=== PATIENT | male | born 1965 | race Caucasian/White ===

== ENCOUNTER 2016-06-24 19:37 | Emergency (ER) | payer BC ==
[2016-06-24 20:20] LABS: BASOPHILS 0.1 % (0.0-2.0); EOSINOPHILS 0.5 % (0-7); HEMATOCRIT 39.8 % (42.0-54.0); HEMOGLOBIN 13.2 g/dL (13.5-17.5); IMMATURE GRANULOCYTES 0.3 % (0-5); LYMPHOCYTES 6.5 % (15-50); MCH 28.9 pg (26.0-34.0); MCHC 33.2 g/dL (31.0-37.0); MCV 87.1 fL (80.0-100.0); MEAN PLATELET VOLUME 11.2 fL (7.4-10.4); MONOCYTES 0.3 % (2-11); NEUTROPHILS 92.3 % (40-80); PLATELET COUNT 150 10x3/uL (130-400); RBC 4.57 10x6/uL (4.20-6.10); RDW 12.4 % (11.5-14.5); WBC 7.8 10x3/uL (4.8-10.8)
[2016-06-24 20:38] LABS: ALBUMIN 3.7 g/dL (3.4-5.0); ALKALINE PHOSPHATASE 84 U/L (46-116); ALT (SGPT) 28 U/L (10-68); BILIRUBIN - TOTAL 1.02 mg/dL (0.2-1.3); CALC OSMOLALITY 276 mosm/kg (275-300); CALCIUM 9.1 mg/dL (8.5-10.1); CARBON DIOXIDE 27.2 mmol/L (21.0-32.0); CHLORIDE - SERUM 99 mmol/L (98-107); CREATININE - SERUM 1.1 mg/dL (0.6-1.3); GLUCOSE 156 mg/dL (74-106); POTASSIUM - SERUM 3.8 mmol/L (3.5-5.1); PROTEIN - SERUM 7.3 g/dL (6.4-8.2); SODIUM 136 mmol/L (136-145); UREA NITROGEN 17 mg/dL (7-18); eGFR NON AFRICAN AMERICAN 75 mL/min (90-120)
[2016-06-29 03:10] LABS: LYME WB - IGG P18 AB Absent (()); LYME WB - IGG P23 AB Absent (()); LYME WB - IGG P28 AB Absent (()); LYME WB - IGG P30 AB Absent (()); LYME WB - IGG P39 AB Absent (()); LYME WB - IGG P41 AB Present (()); LYME WB - IGG P45 AB Absent (()); LYME WB - IGG P58 AB Present (()); LYME WB - IGG P66 AB Absent (()); LYME WB - IGG P93 AB Absent (()); LYME WB - IGG WB INTERP Negative (()); LYME WB - IGM P23 AB Absent (()); LYME WB - IGM P39 AB Present (()); LYME WB - IGM P41 AB Absent (()); LYME WB - IGM WB INTERP Negative (())
[2016-07-02 15:20] LABS: EHRLICHIA CHAFF IGG Negative (Neg:<1:64); EHRLICHIA CHAFF IGM Negative (Neg:<1:20); HGE IGG TITER Negative (Neg:<1:64); HGE IGM TITER Negative (Neg:<1:20)
[2016-07-03 12:16] LABS: F. TULARENSIS - IGG Negative (()); F. TULARENSIS - IGM Negative (()); RMSF IGM 0.75 index (0.00-0.89)
== END 2016-06-24 23:10 | disposition home or self-care (01) ==
LOC: D.ER 19:37
PROVIDERS: Surgery
DX: M17.11 Unilateral primary osteoarthritis, right knee (principal); S83.91XA Sprain of unspecified site of right knee, initial encounter; W19.XXXA Unspecified fall, initial encounter; Y93.89 Activity, other specified; Y92.89 Other specified places as the place of occurrence of the external cause; A93.8 Other specified arthropod-borne viral fevers; F17.200 Nicotine dependence, unspecified, uncomplicated

== ENCOUNTER 2017-07-29 08:54 | Emergency (ER) | payer MEDICAID ==
[2017-07-29 09:47] LABS: BASOPHILS 0.4 % (0-2); EOSINOPHILS 1.1 % (0-7); HEMATOCRIT 38.9 % (42.0-54.0); HEMOGLOBIN 12.7 g/dL (13.5-17.5); IMMATURE GRANULOCYTES 0.2 % (0-5); LYMPHOCYTES 9.7 % (15-50); MCH 27.1 pg (26.0-34.0); MCHC 32.6 g/dL (31.0-37.0); MCV 83.1 fL (80.0-100.0); MEAN PLATELET VOLUME 12.2 fL (7.4-10.4); MONOCYTES 5.8 % (2-11); NEUTROPHILS 82.8 % (40-80); PLATELET COUNT 121 10x3/uL (130-400); RBC 4.68 10x6/uL (4.20-6.10); RDW 13.6 % (11.5-14.5); WBC 4.6 10x3/uL (4.8-10.8)
[2017-07-29 10:12] LABS: ALBUMIN 3.4 g/dL (3.4-5.0); ANION GAP 15.9 mmol/L (8-16); BILIRUBIN - TOTAL 0.8 mg/dL (0.2-1.3); CALCIUM 8.4 mg/dL (8.5-10.1); CARBON DIOXIDE 25.7 mmol/L (21.0-32.0); CREATININE - SERUM 1.1 mg/dL (0.6-1.3); POTASSIUM - SERUM 4.6 mmol/L (3.5-5.1); PROTEIN - SERUM 7.3 g/dL (6.4-8.2)
[2017-07-29 12:01] LABS: APTT 34.2 SECONDS (22.8-39.4); INR 1.2 (0.85-1.17); PROTIME 14.8 SECONDS (11.6-15.0)
[2017-07-29 13:03] LABS: APPEARANCE CLEAR (CLEAR); BILIRUBIN NEGATIVE (NEGATIVE); COLOR YELLOW (YELLOW); GLUCOSE NEGATIVE (NEGATIVE); KETONE NEGATIVE (NEGATIVE); NITRITE NEGATIVE (NEGATIVE); PROTEIN NEGATIVE (NEGATIVE); SPECIFIC GRAVITY 1.005 (1.005-1.020)
[2017-07-29 13:12] LABS: UDS - AMPHET NEGATIVE QUAL (NEGATIVE); UDS - BARB NEGATIVE QUAL (NEGATIVE); UDS - BENZO NEGATIVE QUAL (NEGATIVE); UDS - COCAINE NEGATIVE QUAL (NEGATIVE); UDS - OPIATE POSITIVE QUAL (NEGATIVE); UDS - PCP NEGATIVE QUAL (NEGATIVE); UDS - THC NEGATIVE QUAL (NEGATIVE)
[2017-07-30 12:55] LABS: HEPATITIS C ANTIBODY >11.0 (0.0-0.9)
== END 2017-07-29 16:57 | disposition home or self-care (01) ==
LOC: D.ER 08:54
PROVIDERS: Family Medicine
DX: J20.9 Acute bronchitis, unspecified (principal); R50.9 Fever, unspecified; K75.9 Inflammatory liver disease, unspecified; F17.200 Nicotine dependence, unspecified, uncomplicated

== ENCOUNTER 2017-08-01 13:40 | Emergency (ER) | payer MEDICAID ==
[2017-08-01 14:24] LABS: BASOPHILS 0.2 % (0-2); EOSINOPHILS 0.9 % (0-7); HEMATOCRIT 41.6 % (42.0-54.0); IMMATURE GRANULOCYTES 0.2 % (0-5); LYMPHOCYTES 20.2 % (15-50); MCH 27.3 pg (26.0-34.0); MCHC 33.7 g/dL (31.0-37.0); MCV 81.1 fL (80.0-100.0); MEAN PLATELET VOLUME 11.5 fL (7.4-10.4); MONOCYTES 5.6 % (2-11); NEUTROPHILS 72.9 % (40-80); RBC 5.13 10x6/uL (4.20-6.10); RDW 13.4 % (11.5-14.5); WBC 8.6 10x3/uL (4.8-10.8)
[2017-08-01 14:36] LABS: PLATELET COUNT 189 10x3/uL (130-400)
[2017-08-01 14:48] LABS: ALBUMIN 3.2 g/dL (3.4-5.0); ALKALINE PHOSPHATASE 103 U/L (46-116); ALT (SGPT) 49 U/L (10-68); CALC OSMOLALITY 274 mosm/kg (275-300); CARBON DIOXIDE 23.6 mmol/L (21.0-32.0); CHLORIDE - SERUM 103 mmol/L (98-107); CREATININE - SERUM 0.9 mg/dL (0.6-1.3); POTASSIUM - SERUM 3.9 mmol/L (3.5-5.1); PROTEIN - SERUM 8.2 g/dL (6.4-8.2); SODIUM 136 mmol/L (136-145); UREA NITROGEN 10 mg/dL (7-18); eGFR NON AFRICAN AMERICAN > 90 mL/min (90-120)
[2017-08-01 15:36] LABS: GLUCOSE 167 mg/dL (74-106)
[2017-08-01 16:50] LABS: APPEARANCE CLEAR (CLEAR); BILIRUBIN NEGATIVE (NEGATIVE); COLOR YELLOW (YELLOW); GLUCOSE NEGATIVE (NEGATIVE); KETONE NEGATIVE (NEGATIVE); NITRITE NEGATIVE (NEGATIVE); PROTEIN NEGATIVE (NEGATIVE); UROBILINOGEN NORMAL (NORMAL)
[2017-08-01 16:58] LABS: CREATINE KINASE 37 UL (21-232)
[2017-08-01 16:59] LABS: TROPONIN-I < 0.017 ng/mL (0.000-0.060)
[2017-08-01 17:06] LABS: UDS - AMPHET POSITIVE QUAL (NEGATIVE); UDS - BARB NEGATIVE QUAL (NEGATIVE); UDS - BENZO NEGATIVE QUAL (NEGATIVE); UDS - COCAINE NEGATIVE QUAL (NEGATIVE); UDS - OPIATE POSITIVE QUAL (NEGATIVE); UDS - PCP NEGATIVE QUAL (NEGATIVE); UDS - THC NEGATIVE QUAL (NEGATIVE)
== END 2017-08-01 18:42 | disposition home or self-care (01) ==
LOC: D.ER 13:40
PROVIDERS: Emergency Medicine; Nurse Practitioner Family
DX: J06.9 Acute upper respiratory infection, unspecified (principal); F17.200 Nicotine dependence, unspecified, uncomplicated

== ENCOUNTER 2018-02-08 12:19 | Emergency (ER) | payer MEDICAID ==
[~2018-02-08] VITALS: Ht 172.7 cm; Wt 84.1 kg
[2018-02-08] MEDS ORDERED: AMOXICILLIN500 M1 PO (12:25)
[2018-02-08 12:30] VITALS: Ht 172.7 cm; Wt 84.1 kg
[2018-02-08] MEDS ORDERED: ULTRAM50 MG PO (13:59)
[2018-02-08 14:19] VITALS: BP 142/60
== END 2018-02-08 14:20 | disposition home or self-care (01) ==
LOC: D.ER 12:19
DX: R10.9 Unspecified abdominal pain (principal); F17.200 Nicotine dependence, unspecified, uncomplicated

== ENCOUNTER 2018-05-02 02:06 | Emergency (ER) | payer SELFPAY ==
[~2018-05-02] VITALS: Ht 172.7 cm; Wt 81.8 kg
[~2018-05-02 02:06] MED LIST: AMOXICILLIN500 M1 PO; ULTRAM50 MG PO
[2018-05-02 02:09] VITALS: Ht 172.7 cm; Wt 81.8 kg
[2018-05-02 02:35] LABS: BASOPHILS 0.2 % (0-2); EOSINOPHILS 0.8 % (0-7); HEMATOCRIT 44.1 % (42.0-54.0); HEMOGLOBIN 14.7 g/dL (13.5-17.5); IMMATURE GRANULOCYTES 0.3 % (0-5); LYMPHOCYTES 19.9 % (15-50); MCH 29.2 pg (26.0-34.0); MCHC 33.3 g/dL (31.0-37.0); MCV 87.7 fL (80.0-100.0); MONOCYTES 5.1 % (2-11); NEUTROPHILS 73.7 % (40-80); PLATELET COUNT 180 10x3/uL (130-400); RBC 5.03 10x6/uL (4.20-6.10); RDW 13.2 % (11.5-14.5); WBC 10.8 10x3/uL (4.8-10.8)
[2018-05-02 02:44] LABS: ALBUMIN 3.8 g/dL (3.4-5.0); ALKALINE PHOSPHATASE 80 U/L (46-116); ALT (SGPT) 25 U/L (10-68); BILIRUBIN - TOTAL 0.29 mg/dL (0.2-1.3); CALC OSMOLALITY 283 mosm/kg (275-300); CHLORIDE - SERUM 102 mmol/L (98-107); CREATININE - SERUM 1.2 mg/dL (0.6-1.3); GLUCOSE 164 mg/dL (74-106); POTASSIUM - SERUM 4.3 mmol/L (3.5-5.1); PROTEIN - SERUM 7.6 g/dL (6.4-8.2); SODIUM 140 mmol/L (136-145); UREA NITROGEN 14 mg/dL (7-18); eGFR NON AFRICAN AMERICAN 67 mL/min (90-120)
[2018-05-02 02:46] LABS: AMYLASE - SERUM 30 U/L (25-115); LIPASE 112 U/L (73-393)
[2018-05-02 02:47] LABS: TROPONIN-I < 0.017 ng/mL (0.000-0.060)
[2018-05-02 04:29] LABS: APPEARANCE CLEAR (CLEAR); BILIRUBIN NEGATIVE (NEGATIVE); COLOR YELLOW (YELLOW); GLUCOSE NEGATIVE (NEGATIVE); KETONE NEGATIVE (NEGATIVE); NITRITE NEGATIVE (NEGATIVE); PROTEIN NEGATIVE (NEGATIVE); UROBILINOGEN NORMAL (NORMAL)
[2018-05-02] MEDS ORDERED: HYDROCODON-ACE1 EA10 PO (05:01)
[2018-05-02 05:11] VITALS: BP 132/79
== END 2018-05-02 05:11 | disposition home or self-care (01) ==
LOC: D.ER 02:06
PROVIDERS: Family Medicine
DX: S39.011A Strain of muscle, fascia and tendon of abdomen, initial encounter (principal); X50.0XXA Overexertion from strenuous movement or load, initial encounter; Y93.89 Activity, other specified; Y92.019 Unspecified place in single-family (private) house as the place of occurrence of the external cause

== ENCOUNTER 2018-07-14 04:43 | Emergency (ER) | payer SELFPAY ==
[~2018-07-14] VITALS: Ht 172.7 cm; Wt 79.5 kg
[~2018-07-14 04:43] MED LIST changes: +HYDROCODON-ACE1 EA10 PO
[2018-07-14 04:48] VITALS: Ht 172.7 cm; Wt 79.5 kg
[2018-07-14] MEDS ORDERED: CYCLOBENZAPRINE10 MG PO (05:45)
[2018-07-14 06:08] VITALS: BP 138/89
[2018-07-15] MEDS ORDERED: VOLTAREN75 MG PO (19:29)
[2018-07-15] MEDS ORDERED: ROBAXIN500 MG PO (19:29)
== END 2018-07-14 06:56 | disposition home or self-care (01) ==
LOC: D.ER 04:43
DX: S29.012A Strain of muscle and tendon of back wall of thorax, initial encounter (principal); F17.200 Nicotine dependence, unspecified, uncomplicated

== ENCOUNTER 2018-07-15 13:52 | Emergency (ER) | payer SELFPAY ==
[~2018-07-15] VITALS: Ht 172.7 cm; Wt 79.5 kg
[~2018-07-15 13:52] MED LIST changes: +CYCLOBENZAPRINE10 MG PO
[2018-07-15 14:12] VITALS: Ht 172.7 cm; Wt 79.5 kg
[2018-07-15] MEDS ORDERED: VOLTAREN75 MG PO (19:29)
[2018-07-15] MEDS ORDERED: ROBAXIN500 MG PO (19:29)
[2018-07-15 19:55] VITALS: BP 155/83
== END 2018-07-15 19:55 | disposition home or self-care (01) ==
LOC: D.ER 13:52
DX: M54.5 Low back pain (principal); G89.29 Other chronic pain; F17.200 Nicotine dependence, unspecified, uncomplicated

== ENCOUNTER 2020-08-18 10:43 | Inpatient (IN) | payer MEDICARE, MEDICAID ==
[~2020-08-18] VITALS: Ht 172.7 cm; Wt 88.2 kg
[2020-08-18] VITALS (11 sets, daily range): BP systolic 119–136; BP diastolic 78–97; Ht 172.7 cm; Wt 88.2 kg
[~2020-08-18 10:43] MED LIST changes: +ROBAXIN500 MG PO; +VOLTAREN75 MG PO
[2020-08-18 11:43] LABS: BASOPHILS 0.8 % (0-2); EOSINOPHILS 1.4 % (0-7); HEMATOCRIT 41.9 % (42.0-54.0); HEMOGLOBIN 13.9 g/dL (13.5-17.5); LYMPHOCYTES 16.7 % (15-50); MCH 28.2 pg (26.0-34.0); MCHC 33.3 g/dL (31.0-37.0); MCV 84.9 fL (80.0-100.0); MEAN PLATELET VOLUME 9.3 fL (7.4-10.4); MONOCYTES 5.6 % (2-11); NEUTROPHILS 75.5 % (40-80); RBC 4.94 10x6/uL (4.20-6.10); RDW 13.6 % (11.5-14.5); WBC 6.3 10x3/uL (4.8-10.8)
[2020-08-18 11:47] LABS: PLATELET COUNT 139 10x3/uL (130-400)
[2020-08-18 12:03] LABS: CALC OSMOLALITY 280 mosm/kg (275-300); CALCIUM 8.7 mg/dL (8.5-10.1); CARBON DIOXIDE 27.5 mmol/L (21.0-32.0); CHLORIDE - SERUM 104 mmol/L (98-107); CREATININE - SERUM 1.2 mg/dL (0.6-1.3); GLUCOSE 158 mg/dL (74-106); POTASSIUM - SERUM 3.9 mmol/L (3.5-5.1); SODIUM 139 mmol/L (136-145); UREA NITROGEN 13 mg/dL (7-18); eGFR NON AFRICAN AMERICAN 67 mL/min (90-120)
[2020-08-18 12:13] LABS: ALBUMIN 3.5 g/dL (3.4-5.0); ALKALINE PHOSPHATASE 56 U/L (30-120); ALT (SGPT) 24 U/L (10-68); BILIRUBIN - TOTAL 0.35 mg/dL (0.2-1.3); MAGNESIUM - SERUM 1.9 mg/dL (1.8-2.4); TROPONIN-I < 0.017 ng/mL (0.000-0.060)
--- NOTE | 2020-08-18 14:30 | NUR ---
ASUMED CARE OF PT. SITTING UPRIGHT IN BED, DRWOSY BUT AROUSEABLE. SKIN W/D/P. RESP EVEN/UNLABORED. NARCAN GTT INFUSING TO RIGHT HAND PIV WITHOUT PBMS AT SITE @ 51 ML/HR
--- NOTE | 2020-08-18 15:50 | NUR ---
URINE SPEC COLLECTED, LABELED AT BS AND SENT TO LAB
[2020-08-18 16:08] LABS: UDS - AMPHET POSITIVE QUAL (NEGATIVE); UDS - BARB NEGATIVE QUAL (NEGATIVE); UDS - BENZO NEGATIVE QUAL (NEGATIVE); UDS - COCAINE POSITIVE QUAL (NEGATIVE); UDS - OPIATE NEGATIVE QUAL (NEGATIVE); UDS - PCP NEGATIVE QUAL (NEGATIVE); UDS - THC NEGATIVE QUAL (NEGATIVE)
[2020-08-18 16:18] LABS: BILIRUBIN NEGATIVE (NEGATIVE); KETONE NEGATIVE (NEGATIVE); NITRITE NEGATIVE (NEGATIVE); UROBILINOGEN NORMAL mg/dL (< 2)
--- NOTE | 2020-08-18 16:30 | NUR ---
REPORT TO MARIA LUISA ORTEGA
--- NOTE | 2020-08-18 16:50 | NUR ---
received pt to [facility] via pietro, pt alert and oriented to person and time, falls asleep easily, pt placed on monitor tech, sr noted, denies pain or needs at this time, call light in reach, will monitor
--- NOTE | 2020-08-18 17:08 | NUR ---
REPORTS HE DOES NOT WANT HIS MOTHER TO KNOW HE IS HERE. ADMISSIONS CONTACTED TO MAKE HIM CONFIDENTIAL.
--- NOTE | 2020-08-18 18:15 | NUR ---
pt sleeping at this time, no distress noted, will carine
--- NOTE | 2020-08-18 19:00 | NUR ---
PT AROUSES WITH VOICES, FOLLOWS SIMPLE COMMANDS, HE FALL BACK TO SLEEP EASILY. VSS. WILL CONT TO MONITOR.
[2020-08-19] VITALS (11 sets, daily range): BP systolic 119–183; BP diastolic 70–92
[2020-08-19 05:19] LABS: BASOPHILS 0.5 % (0-2); EOSINOPHILS 2.5 % (0-7); HEMATOCRIT 39.3 % (42.0-54.0); HEMOGLOBIN 13.1 g/dL (13.5-17.5); LYMPHOCYTES 42.8 % (15-50); MCH 28.3 pg (26.0-34.0); MCHC 33.4 g/dL (31.0-37.0); MCV 84.6 fL (80.0-100.0); MEAN PLATELET VOLUME 9.9 fL (7.4-10.4); MONOCYTES 7.2 % (2-11); PLATELET COUNT 143 10x3/uL (130-400); RBC 4.65 10x6/uL (4.20-6.10); RDW 13.4 % (11.5-14.5); WBC 6.3 10x3/uL (4.8-10.8)
[2020-08-19 05:46] LABS: ALBUMIN 3.3 g/dL (3.4-5.0); ANION GAP 10.7 mmol/L (8-16); BILIRUBIN - TOTAL 0.63 mg/dL (0.2-1.3); CALCIUM 8.3 mg/dL (8.5-10.1); CARBON DIOXIDE 28.3 mmol/L (21.0-32.0); CREATININE - SERUM 1.2 mg/dL (0.6-1.3); PROTEIN - SERUM 6.7 g/dL (6.4-8.2)
--- NOTE | 2020-08-19 07:10 | NUR ---
PT SITTING UP IN BED RESTING, ALERT AND ORIENTED, WAITING ON BREAKFAST TRAY, NO NEEDS VOICED, CALL LIGHT IN REACH, WILL MONITOR
--- NOTE | 2020-08-19 10:20 | NUR ---
pt laying in bed resting comfortable, no distress noted, no needs voiced, will monitor
--- NOTE | 2020-08-19 10:50 | NUR ---
pivs dc'd at this time
--- NOTE | 2020-08-19 11:25 | NUR ---
pt discharged home at this time, discharge instructions given and explained, pt discharged via taxi
== END 2020-08-19 11:25 | disposition home or self-care (01) | DRG 917 ==
LOC: D.ER 10:43 → D.ICU 14:15 → OBSVTIME 14:15 → D.ICU 20:35
PROVIDERS: Emergency Medicine; ADMIT Family Medicine; ATTEND Family Medicine
DX: T50.901A Poisoning by unspecified drugs, medicaments and biological substances, accidental (unintentional), initial encounter (principal); G92 Toxic encephalopathy; F19.10 Other psychoactive substance abuse, uncomplicated